=== PATIENT | male | born 1955 | race Caucasian/White ===

== ENCOUNTER 2022-05-27 13:10 | Emergency (ER) | payer SELFPAY ==
[~2022-05-27] VITALS: Ht 180.3 cm; Wt 90.0 kg
[2022-05-27 13:18] VITALS: BP 132/90
[2022-05-27] MEDS ORDERED: CYCL-1 PO (13:57)
[2022-05-27] MEDS ORDERED: ketorolac trometh. 30mg/ml inj. IM ONE (14:00)
[2022-05-27] MEDS ORDERED: cyclobenzaprine 10mg tablet PO ONE (14:00)
== END 2022-05-27 14:11 | disposition home or self-care (01) ==
LOC: ER 13:11
DX: S13.9XXA Sprain of joints and ligaments of unspecified parts of neck, initial encounter (principal); S33.5XXA Sprain of ligaments of lumbar spine, initial encounter; V49.88XA Car occupant (driver) (passenger) injured in other specified transport accidents, initial encounter; Y93.89 Activity, other specified; Y92.89 Other specified places as the place of occurrence of the external cause; Y99.8 Other external cause status
CPT/HCPCS: 96372; 99283; J1885